=== PATIENT | female | born 2000 | race Two or more races ===

== ENCOUNTER 2025-06-29 22:45 | Observation (INO) | payer MEDICAID, OTHER ==
[~2025-06-29] VITALS: Ht 157.5 cm; Wt 77.1 kg
--- NOTE | 2025-06-30 00:44 | DVH ---
Bilateral lower extremity venous duplex Clinical History: calf pain and bilateral lower extremity edema Comparison: None Technique: Duplex Doppler evaluation of the deep venous systems of both lower extremities from the common femora l veins to the popliteal veins including color Doppler and spectral/pulsed waveform analysis was perf ormed. Findings: RIGHT SIDE: The common femoral vein demonstrates appropriate compressibility and waveform variability. There is compressibility/patency of the great saphenous vein at the proximal thigh. The femoral vein demonstrates appropriate compressibility and waveform variability. The deep femoral vein demonstrates appropriate compressibility and waveform variability. The popliteal vein demonstrates appropriate compressibility and waveform variability. There is normal compressibility at the tibioperoneal trunk. LEFT SIDE: The common femoral vein demonstrates appropriate compressibility and waveform variability. There is compressibility/patency of the great saphenous vein at the proximal thigh. The femoral vein demonstrates appropriate compressibility and waveform variability. The deep femoral vein demonstrates appropriate compressibility and waveform variability. The popliteal vein demonstrates appropriate compressibility and waveform variability. There is normal compressibility at the tibioperoneal trunk. Impression: 1. No right or left femoropopliteal venous thrombosis.
--- NOTE | 2025-06-30 03:05 | DVHDS2 ---
Physician Discharge Progress N Final Diagnosis: IUP 35 wk, decreased movement Secondary Diagnosis: Encounter for NST/BPP Operations or Procedures: Operations or Procedures NST/BPP WNL BP's normal NOT in labor SONO reviewed Condition on Discharge: Stable Disposition: Home Discharge Instructions: Diet: Regular Activity: Light activity Follow Up/Referral: PRN Medications: NA Follow Up Care: Discharge Statement: "Patient was advised to return to the ER or call 911 if any headaches, dizziness, shortness of breath, chest pain, abdominal pain, bleeding, fevers, or worsening of medical condition. Patient was counseled about treatment plan, medications, possible side effects, patientverbalized understanding. All questions were answered to the best of my ability. This discharge took greater then 30 minutes in planning, reviewing documentation, counseling the patient, and discussing with other team members." Visit Coding OBGYN Date of Service: Jun 30, 2025 Billing Provider: SHIMA OSWALD DO [employer] Common Visit Codes: 07915-KVL/OBS SAME DATE (HIGH) [employer] Procedure Codes: 84665-17- NON-STRESS TEST SHIMA OSWALD DO Jun 30, 2025 03:05
[2025-06-30] MEDS ORDERED: PREN-96 OR (03:18)
--- NOTE | 2025-06-30 03:26 | DVH ---
BIOPHYSICAL PROFILE HISTORY: Variable Deceleration TECHNIQUE: Multiple transabdominal real-time grayscale sonographic images through the gravid uterus of the fetus with duplex Doppler color flow and M-mode spectral analysis FINDINGS: Biophysical score of 8/8 including breathing, movement, tone, and JUSTIN. heart rate of 129 beats per minute. Cephalic position. JUSTIN of 16.3 cm. Placenta is tenzin l/ posterior grade 3 position. IMPRESSION: 1. Biophysical profile score: 8/8
== END 2025-06-30 03:55 | disposition home or self-care (01) ==
LOC: LDRP 22:45
PROVIDERS: ADMIT Obstetrics & Gynecology; ATTEND Obstetrics & Gynecology
DX: O36.8130 Decreased fetal movements, third trimester, not applicable or unspecified (principal); Z3A.35 35 weeks gestation of pregnancy; Z98.890 Other specified postprocedural states; Z79.899 Other long term (current) drug therapy
CPT/HCPCS: 59025; 76819; 81002; 93970; 94760; G0378